=== PATIENT | male | born 1995 | race Hispanic/Latino ===

== ENCOUNTER 2018-03-18 23:25 | Emergency (ER) | payer OTHER ==
[2018-03-18 23:32] VITALS: BP 153/83; PULSE 65; RESP 16; TEMP 99.2; O2SAT 98
--- NOTE | 2018-03-19 00:30 | ED PDOC ---
HPI: Skin/Bite Injury Time Seen by Provider: 03/19/18 00:04 Chief Complaint (Nursing): Body Fluid Exposure Chief Complaint (Provider): Body Fluid Exposure History Per: Patient History/Exam Limitations: no limitations Onset/Duration Of Symptoms: Mins Additional Complaint(s): Basilio Celis is a 22 year old male with no past medical history who is here for evaluation of body fluid exposure. Patient is an employee of [employer] who was helping restrain a patient when blood spattered onto left cheek. Patient states that the blood did not enter his eyes, mouth or any mucous membranes. He denies being bitten as well. Past Medical History Reviewed: Historical Data, Nursing Documentation, Vital Signs Vital Signs: Last Vital Signs Temp 99.2 F 03/18/18 23:30 Pulse 65 03/18/18 23:30 Resp 16 03/18/18 23:30 BP 153/83 H 03/18/18 23:30 Pulse Ox 98 03/19/18 04:04 - Medical History PMH: No Chronic Diseases - Surgical History Surgical History: No Surg Hx - Family History Family History: States: Unknown Family Hx - Social History Current smoker - smoking cessation education provided: No Alcohol: Social Drugs: Denies - Allergies Allergies/Adverse Reactions: Allergies Allergy/AdvReac Type Severity Reaction Status Date / Time Penicillins Allergy RASH Verified 03/18/18 23:30 Review of Systems ROS Statement: Except As Marked, All Systems Reviewed And Found Negative Constitutional: Positive for: Other (body fluid exposure) Physical Exam - Reviewed Nursing Documentation Reviewed: Yes Vital Signs Reviewed: Yes - Physical Exam Comments: GENERAL APPEARANCE: Patient is awake, alert, oriented x 3, in no acute distress. SKIN: Warm, dry; (-) cyanosis. EYES: (-) conjunctival pallor. ENMT: Mucous membranes moist. Airway patent: (-) stridor. Pharynx: (-) swelling, (-) erythema. NECK: (-) tenderness, (-) stiffness, (-) lymphadenopathy. EXTREMITIES: (-) deformity, (-) edema. NEURO AND PSYCH: Mental status as above; (-) focal findings. - ECG O2 Sat by Pulse Oximetry: 98 (RA) Pulse Ox Interpretation: Normal Medical Decision Making Medical Decision Making: Time:00:45 Considering patient was exposed only on skin with no direct blood to blood contact, no risk of HIV exposure. PEP not recommended. Patient advised to follow up with [facility]. Patient states he fully agrees with and understands discharge instructions. States that he agrees with the plan and disposition. Verbalized and repeated discharge instructions and plan. I have given the patient opportunity to ask any additional questions. Scribe Attestation: Documented by, Imelda Joya acting as a scribe for Trina Ribeiro PA-C. Provider Scribe Attestation: All medical record entries made by the Scribe were at my direction and personally dictated by me. I have reviewed the chart and agree that the record accurately reflects my personal performance of the history, physical exam, medical decision making, and the department course for this patient. I have also personally directed, reviewed, and agree with the discharge instructions and disposition. Disposition - Clinical Impression Clinical Impression: Exposure to blood or body fluid - Patient ED Disposition Is Patient to be Admitted: No - Disposition Disposition: Routine/Home Disposition Time: 00:15 Condition: STABLE Additional Instructions: Thank you for letting us take care of you today. You were treated for body fluid exposure. The emergency medical care you received today was directed at your acute symptoms. Return to the Emergency Department if your symptoms worsen , do not improve, or if you have any other problems. Please follow up with [facility]. Bring any paperwork you were given at discharge with you along with any medications you are taking to your follow up visit. Our treatment cannot replace ongoing medical care by a primary care provider (PCP) outside of the emergency department. Thank you for allowing the [facility] team to be part of your care today. Instructions: Blood or Body Fluid Exposure Forms: [employer] (Chinese) - PA / SECTION LABORER / Resident Statement MD/DO has reviewed & agrees with the documentation as recorded.
== END 2018-03-19 00:40 | disposition home or self-care (01) ==
LOC: H.ER 23:25
DX: Z77.21 Contact with and (suspected) exposure to potentially hazardous body fluids (principal); Y99.0 Civilian activity done for income or pay; Z88.0 Allergy status to penicillin